=== PATIENT | female | born 1995 | race Two or more races ===

== ENCOUNTER → 2018-10-25 | Outpatient (REF) | payer OTHER ==
[2018-10-25 16:04] LABS: BASO % 0.2 % (0.0-1.0); EOS # 0.2 10^3/uL (0.0-0.50); EOS % 1.4 % (0.0-3.0); LYMPH # 1.7 10^3/uL (1.5-6.5); MEAN CORPUSCULAR HEMOGLOBIN 23.4 pg (27.0-33.0); MEAN CORPUSCULAR HGB CONC 31.4 g/dl (32.0-36.5); MEAN CORPUSCULAR VOLUME 74.5 fl (80.0-96.0); MONO # 0.8 10^3/uL (0.0-0.8); NEUTROPHILS # 8.1 10^3/uL (1.8-7.7); NEUTROPHILS % 74.7 % (36.0-66.0); PLATELET COUNT, AUTOMATED 307 10^3/uL (150-450); WHITE BLOOD COUNT 10.8 10^3/uL (4.0-10.0)
[2018-10-25 16:09] LABS: ALT/SGPT 13 U/L (12-78); BILIRUBIN,TOTAL 0.2 MG/DL (0.2-1.0); BLOOD UREA NITROGEN 5 MG/DL (7-18); CALCIUM LEVEL 8.6 MG/DL (8.5-10.1); CARBON DIOXIDE LEVEL 24 MEQ/L (21-32); CHLORIDE LEVEL 106 MEQ/L (98-107); CREATININE FOR GFR 0.41 MG/DL (0.55-1.30); GLOMERULAR FILTRATION RATE > 60.0 (>60); GLUCOSE, FASTING 85 MG/DL (70-100); POTASSIUM SERUM 4.4 MEQ/L (3.5-5.1); SODIUM LEVEL 137 MEQ/L (136-145); TOTAL PROTEIN 6.5 GM/DL (6.4-8.2)
[2018-10-26 11:17] LABS: HEPATITIS B SURFACE ANTIBODY NEGATIVE (POSITIVE)
[2018-10-29 00:07] LABS: HBV 20 IU/mL (.); log10 HBV IU/mL 1.301 (.)
[2018-10-29 15:35] LABS: HEPATITIS C VIRUS ABY INDEX 0.2 INDEX (<0.8); HIV 1&2 SCREEN CENTAUR NEGATIVE (NEGATIVE)
[2018-10-31 00:08] LABS: HEPATITIS A IgG TOTAL Positive (Negative); HEPATITIS B CORE ANTIBODY IGG Positive (Negative); HEPATITIS BE ANTIBODY Positive (Negative); HEPATITIS BE ANTIGEN Negative (Negative)
== END ==
LOC: M SFHCPLAZ 13:27
PROVIDERS: ATTEND Internal Medicine Infectious Disease
DX: B18.1 Chronic viral hepatitis B without delta-agent (principal)

== ENCOUNTER → 2019-03-12 | Outpatient (REF) | payer OTHER ==
[2019-03-12 13:43] LABS: BASO % 0.2 % (0.0-1.0); EOS # 0.1 10^3/uL (0.0-0.50); HEMATOCRIT 32.7 % (36.0-47.0); HEMOGLOBIN 9.7 g/dl (12.0-15.5); LYMPH % 18.1 % (24.0-44.0); MEAN CORPUSCULAR HGB CONC 29.7 g/dl (32.0-36.5); MEAN CORPUSCULAR VOLUME 70.8 fl (80.0-96.0); MONO # 0.9 10^3/uL (0.0-0.8); MONO % 7.8 % (0.0-5.0); NEUTROPHILS # 8.1 10^3/uL (1.8-7.7); NEUTROPHILS % 72.2 % (36.0-66.0); PLATELET COUNT, AUTOMATED 307 10^3/uL (150-450); RED BLOOD COUNT 4.62 10^6/uL (4.00-5.40); WHITE BLOOD COUNT 11.2 10^3/uL (4.0-10.0)
[2019-03-12 13:49] LABS: ALBUMIN 2.7 GM/DL (3.2-5.2); ALT/SGPT 17 U/L (12-78); BILIRUBIN,TOTAL 0.6 MG/DL (0.2-1.0); BLOOD UREA NITROGEN 4 MG/DL (7-18); CALCIUM LEVEL 8.9 MG/DL (8.5-10.1); CARBON DIOXIDE LEVEL 24 MEQ/L (21-32); CHLORIDE LEVEL 109 MEQ/L (98-107); CREATININE FOR GFR 0.46 MG/DL (0.55-1.30); GLOMERULAR FILTRATION RATE > 60.0 (>60); GLUCOSE, FASTING 92 MG/DL (70-100); POTASSIUM SERUM 4.2 MEQ/L (3.5-5.1); SODIUM LEVEL 140 MEQ/L (136-145); TOTAL PROTEIN 6.5 GM/DL (6.4-8.2)
[2019-03-14 14:51] LABS: HBV <10 IU/mL (.)
== END ==
LOC: M SFHCPLAZ 08:22
PROVIDERS: ATTEND Internal Medicine Infectious Disease
DX: B18.1 Chronic viral hepatitis B without delta-agent (principal)

== ENCOUNTER 2019-04-05 01:48 | Inpatient (IN) | payer OTHER ==
[2019-04-05] VITALS (15 sets, daily range): BP systolic 105–173; BP diastolic 60–82
[~2019-04-05] VITALS: Ht 167.6 cm; Wt 96.2 kg
[2019-04-05] MEDS ORDERED: OXYTOCIN 30 UNITS IN 0.9% NaCl 500ML IV BAG (J2590) As Ordered ONE ×2 (02:23→04:04)
[2019-04-05] MEDS ORDERED: LR 1,000 ML IV SCH (02:36)
[2019-04-05 02:41] LABS: HEMATOCRIT 34.2 % (36.0-47.0); HEMOGLOBIN 10.5 g/dl (12.0-15.5); MEAN CORPUSCULAR HEMOGLOBIN 22.7 pg (27.0-33.0); MEAN CORPUSCULAR HGB CONC 30.7 g/dl (32.0-36.5); MEAN CORPUSCULAR VOLUME 73.9 fl (80.0-96.0); PLATELET COUNT, AUTOMATED 242 10^3/uL (150-450); RED BLOOD COUNT 4.63 10^6/uL (4.00-5.40); WHITE BLOOD COUNT 10.8 10^3/uL (4.0-10.0)
[2019-04-05] MEDS ORDERED: LACTATED RINGER'S 1000 ML IV ONE (02:45)
[2019-04-05 03:46] LABS: CORD GAS ABE V -4.1; CORD GAS HCO3 V 20.8 MEQ/L; CORD GAS O2 SAT V 85.1 %; CORD GAS PCO2 V 37.6 mmHg; CORD GAS PH V 7.361 UNITS; CORD GAS PO2 V 39.1 mmHg; CORD GAS SBC V 20.8 MEQ/L
[2019-04-05 03:49] LABS: CORD GAS ABE A -6.6; CORD GAS O2 SAT A 28.2 %; CORD GAS PCO2 A 57.9 mmHg; CORD GAS PH A 7.197 UNITS; CORD GAS PO2 A 16.5 mmHg; CORD GAS SBC A 17.8 MEQ/L; CORD GAS TCO2 A 23.7 MEQ/L
[2019-04-05] MEDS ORDERED: OXYTOCIN DRIP 30 UNITS in IV 1 EA IV SCH (04:02)
[2019-04-05] MEDS ORDERED: MOM 30ML SUSPENSION UDC PO PRN (04:15)
[2019-04-05] MEDS ORDERED: MEASLES,MUMPS,RUBELLA VACCINE INJ (MMR-II) (90707) SC SCH (04:15)
[2019-04-05] MEDS ORDERED: RHOGAM 300 MCG (1500 IU) INJ (J2790) IM SCH (04:15)
[2019-04-05] MEDS ORDERED: IBUPROFEN 600 MG TAB PO PRN (04:15)
[2019-04-05] MEDS ORDERED: miSOPROStol 200 MCG TAB (S0191) PR ONE (04:15)
[2019-04-05] MEDS ORDERED: METHYLERGONOVINE MALEATE 0.2 MG TAB PO PRN (04:15)
[2019-04-05] MEDS ORDERED: ACETAMINOPHEN TAB 650MG DOSE (2X325MG) PO PRN (04:15)
[2019-04-05] MEDS ORDERED: ANUSOL HC CREAM 30GM TOP PRN (04:15)
[2019-04-05] MEDS ORDERED: DOCUSATE SODIUM 100 MG CAP PO PRN (04:15)
[2019-04-05] MEDS ORDERED: DIBUCAINE 1% OINTMENT 30GM TOP PRN (04:15)
[2019-04-05] MEDS ORDERED: OXYTOCIN INJ 10 UNITS/ML VIAL (J2590) IV ONE (04:15)
[2019-04-05] MEDS ORDERED: ACETAMINOPHEN 500 MG TAB PO PRN (04:15)
[2019-04-05] MEDS: PRENATAL VITAMINS CHEWABLE TABLET PO SCH (08:13)
[2019-04-05] MEDS ORDERED: METHYLERGONOVINE MALEATE 0.2 MG TAB PO SCH (11:00)
[2019-04-05] MEDS: METHYLERGONOVINE MALEATE 0.2 MG TAB PO SCH ×3 (11:44→22:53)
--- NOTE | 2019-04-05 11:44 | IPNPDOC ---
Text Note Date of Service 04/05/2019 LND Bed 2 NOTE The patient was seen on 04/05/19. Assumed care of patient from Dr. Grant at 0700h. Pt recently s/p with intrapartum complicated by abrution and EBL of 400mL. Pt is clinically stable, FF @ U, non tender, nursing reports appropriate lochia. Dodge catheter being dc'd. Pt received pitocin and cytotec immediately after delivery for managing initial bleeding. Scheduled Q6H methergine series ordered for the next 24 hours. pt has not had htn issues antepartum nor during her admission. Will see patient on AM round tommorrow unless of course requested sooner. 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 Continue routine care. VS,Fishbone, I+O VS, Fishbone, I+O Laboratory Tests 04/05/19 02:36 Red Blood Count 4.63, Mean Corpuscular Volume 73.9 L, Mean Corpuscular Hemoglobin 22.7 L, Mean Corpuscular Hemoglobin Concent 30.7 L, Red Cell Distribution Width 21.7 H Vital Signs Date Time Temp Pulse Resp B/P (MAP) Pulse Ox O2 Delivery O2 Flow Rate FiO2 04/05/19 08:30 98.2 75 18 109/63 (78) I&O- Last 24 Hours up to 6 AM 04/05/19 06:00 Output Total 400 ml Balance -400 ml MAXI ROBBINS MD Apr 05, 2019 11:44
[2019-04-05] MEDS: IBUPROFEN 800 MG TAB PO PRN (13:54)
--- NOTE | 2019-04-05 16:12 | HPE ---
DATE OF ADMISSION: 04/05/2019 This lady is a 23-year-old, 3, para 1, abortus 1, LMP 07/01/2018, EDC 04/19/2019, at 38 weeks of gestation, came in with a history of vaginal bleeding and contractions, possibility of abruptio placenta. On initial examination, moderate amount of bleeding through the sheets. Examination revealed cervix which was about 80% effaced, stretchy, 4, no membranes were felt and the bleeding appeared to be coming either from the cervix or the uterus. The strip was originally category one. However, it had some variable decelerations, baseline variability presently is 6-15 beats per minute, baseline heart rate is 120, but there are times when there is runs of variable decelerations with good recovery. Her past history is in 2017 at 42 weeks spontaneous vaginal delivery 7 pounds 10 ounces female, in 2015 at 5 weeks had D and C for spontaneous AB. Labs are O+, HIV negative, hepatitis negative, RPR negative, rubella immune. Varicella immune. Pap normal. Urine negative. Gonorrhea and chlamydia negative. 1-hour glucose 130. GBS is negative. Her risk factors is she is hepatitis B+, however, she has been cleared by infectious diseases, her viral load is very small and she also has beta thalassemia but the father of the baby is negative. Rest of the examination, she is normocephalic, atraumatic. Neck full range of motion. Pupils equal and reactive to light. Distal pulses are symmetric. No evidence of DVT, PE or superficial phlebitis. Chest is clear bilaterally to the bases. No wheezes or rhonchi. No CVA tenderness. Abdomen: Symphysis fundus height is appropriate. Nontender uterus. Four quadrant bowel sounds are noted. Pelvic examination, abdominal examination as mentioned. She has no rashes, lesions or pruritus. No arthralgia, myalgia. No complaint of joint pain. No complaint of wheezes, shortness of breath or dyspnea on exertion. She is bleeding. She is neurologically complete. She has no incontinency, urgency or frequency. No nausea, vomiting, diarrhea or constipation. No diabetic issues. No past abnormal gynecologic history. Medical history is hepatitis B+. Surgical history noncontributory. She does not smoke, drink, or abuse drugs. She is and there is no domestic violence. Our plan of management at the present time is to hydrate her, put a FSE in, a Dodge catheter in, if possible get an epidural and hopefully anticipate a rapid vaginal delivery. Otherwise this patient will end up with an emergency section. We discussed the risks and benefits of both vaginal and emergency section delivery with the patient, expressed understanding of same. Very close monitoring this patient and pelvic examination in order to see rapid progression is in place.
--- NOTE | 2019-04-05 17:19 | DN ---
DATE: 04/05/2019 A 23-year-old 3 was admitted with spontaneous labor at 38 weeks with abruptio placenta. She had a spontaneous vaginal delivery with no anesthesia of a live- male infant weighing 6 pounds 5 ounces, 2870 grams, scores of 8 and 9 at one and five minutes, respectfully. Cord was around the neck times one very tight. Arterial pH 7.19, base excess -6.6, venous pH 7.36, base excess -4.1. Placenta delivered spontaneously thereafter. Three-vessel cord, membranes and tissues intact. Was quite pale on the side. Was sent off to pathology under separate cover. The uterus contracted well down on Pitocin with some runny fluid, which suggested possibly anticoagulation; however, we gave her 1000 mg of Cytotec per rectum, ran the Pitocin at 999 per hour. We will run an extra bottle of 125 per hour, and she has Methergine ordered if needed. The examination of the vagina, anterior, posterior, and lateral jolly, were intact. Sphincter was tight, and there was no damage into the sphincter or the perineal body. In summary, we have a term gestation, abruptio placenta, live- male infant.
[2019-04-06] MEDS: IBUPROFEN 800 MG TAB PO PRN ×2 (03:16→09:51)
[2019-04-06] MEDS: METHYLERGONOVINE MALEATE 0.2 MG TAB PO SCH (04:58)
[2019-04-06 06:00] VITALS: BP 108/62
[2019-04-06 06:47] LABS: HEMATOCRIT 36.9 % (36.0-47.0); HEMOGLOBIN 11.3 g/dl (12.0-15.5); MEAN CORPUSCULAR HEMOGLOBIN 22.3 pg (27.0-33.0); MEAN CORPUSCULAR HGB CONC 30.6 g/dl (32.0-36.5); MEAN CORPUSCULAR VOLUME 72.8 fl (80.0-96.0); PLATELET COUNT, AUTOMATED 296 10^3/uL (150-450); RED BLOOD COUNT 5.07 10^6/uL (4.00-5.40); WHITE BLOOD COUNT 11.5 10^3/uL (4.0-10.0)
[2019-04-06] MEDS ORDERED: ACET-683 PO (07:39)
[2019-04-06] MEDS ORDERED: COLA100C5 PO (07:39)
[2019-04-06] MEDS ORDERED: DIBU10OI TOP (07:39)
[2019-04-06] MEDS ORDERED: IBUP80TA PO (07:39)
[2019-04-06] MEDS: PRENATAL VITAMINS CHEWABLE TABLET PO SCH (09:51)
--- NOTE | 2019-04-06 14:51 | DSES ---
DATE OF ADMISSION: 04/05/2019 DATE OF DISCHARGE: 23-year-old 3 now para 2 admitted in spontaneous labor 38 weeks had abruptio placenta, delivered a live male infant 6 pounds 5 ounces 2870 grams, Apgars of 8 and 9 at one and five minutes respectfully. Cord around the neck once tight. Arterial pH 7.19, base excess -6.6, venous pH 7.36, base excess -4.1. Her admitting hemoglobin was 10.5, hematocrit 34.2 and platelets 242. Discharge hemoglobin 11.3, hematocrit 36.9 and platelets are 296. Her vital signs on discharge: Her blood pressure 108/62, respirations 17, pulse 66, temperature 97.4. We discussed phlebitis, cystitis, mastitis, metritis and cellulitis, diet, exercise, pain management, perineal, breast and wound care. Perineum was intact. She is normocephalic, atraumatic. Neck: Full range of motion. Pupils equal and reactive to light. Distal pulses symmetric. No evidence of deep venous thrombosis (DVT), pulmonary embolism (PE) or superficial phlebitis. Chest is clear bilaterally bases. No wheezes or rhonchi. No CVA tenderness. She has no urgency, frequency, nausea, vomiting, diarrhea or constipation. The rest of the examination is as mentioned. We had a discussion regarding control. She will make an informed decision at her 6-week checkup. Medication were dispensed at [facility], all questions were answered. 20 minutes discussion. The patient is anxious to go home. Breast-feeding is doing well.
--- NOTE | 2019-04-07 14:58 | IPN ---
DATE: 04/05/2019 This patient and her has requested circumcision of their male infant. After discussing the risks and benefits of the circumcision, the medical and nonmedical indications, penile block and aftercare, signed a consent form. We await the clearance by the sample case porter. A 20-minute discussion and all questions were answered.
== END 2019-04-06 10:40 | disposition home or self-care (01) | DRG 807 ==
LOC: M LDO 01:48 → M LDI 02:07 → M OBS 11:15
PROVIDERS: ADMIT Obstetrics & Gynecology; ATTEND Obstetrics & Gynecology
PROC: 10E0XZZ Delivery of Products of Conception, External Approach (ICD-10-PCS; principal; 2019-04-05)
DX: O45.93 Premature separation of placenta, unspecified, third trimester (principal); Z37.0 Single live birth; Z3A.38 38 weeks gestation of pregnancy; O69.1XX0 Labor and delivery complicated by cord around neck, with compression, not applicable or unspecified

== ENCOUNTER → 2020-04-22 | Outpatient (REF) | payer OTHER ==
[~2020-04-22] MED LIST: ACET-683 PO; COLA100C5 PO; DIBU10OI TOP; IBUP80TA PO
== END ==
LOC: M LAB REF 12:28
PROVIDERS: ATTEND Physician Assistant
DX: N39.0 Urinary tract infection, site not specified (principal)